=== PATIENT | male | born 1965 | race Caucasian/White ===

== ENCOUNTER 2021-05-16 18:39 | Emergency (ER) | payer OTHER ==
[2021-05-16 19:14] LABS: BASOPHIL 0.2 % (0-2); EOSINOPHIL 0.4 % (0-5); HCT 39.6 % (42.0-52.0); HGB 13.5 g/dl (13.2-18.0); LYMPHOCYTE 20.3 % (15-48); MCH 29.2 pg (25.0-31.0); MCHC 34.1 g/dL (32.0-36.0); MCV 85.5 fL (78.0-100.0); MONOCYTE 10.2 % (0-12); MPV 9.8 fL (6.0-9.5); NEUTROPHIL 68.5 % (41-80); NRBC 0; PLT 198 K/uL (150-400); RBC 4.63 M/uL (4.70-6.00); RDW 12.1 % (11.5-14.0)
[2021-05-16 19:48] LABS: ALBUMIN 3.6 g/dL (3.4-5.0); BILIRUBIN - TOTAL 0.5 mg/dL (0.2-1.0); BUN/CREAT RATIO (CALC) 18.9 RATIO; C-REACTIVE PROTEIN 5.3 mg/dL (<=0.90); CREATININE 0.9 mg/dL (0.67-1.17); GLOBULIN (CALCULATION) 3.2 g/dL; TOTAL PROTEIN 6.8 g/dL (6.4-8.2)
[2021-05-16 19:51] LABS: LACTIC ACID 0.8 mmol/L (0.4-1.9)
[2021-05-16] MEDS ORDERED: NAPROXEN500 MG PO (21:37)
[2021-05-16] MEDS ORDERED: VENTOLIN HFA18 GM INH (21:37)
[2021-05-16] MEDS ORDERED: MEDROL 4MG DOSEP4 MG PO (21:37)
[2021-05-16] MEDS ORDERED: ONDANSETRON ODT4 MG PO (21:37)
[2021-05-16 22:00] LABS: BILIRUBIN NEGATIVE (NEGATIVE); BLOOD NEGATIVE Ery/uL (NEGATIVE); CLARITY CLEAR (CLEAR); COLOR YELLOW (YELLOW); GLUCOSE (U) NORMAL (NORMAL); LEUKOCYTES NEGATIVE Leu/uL (NEGATIVE); NITRITE NEGATIVE (NEGATIVE); PROTEIN NEGATIVE (NEGATIVE); UROBILINOGEN 0.2 mg/dL (0.2-1.0)
== END 2021-05-16 22:54 | disposition home or self-care (01) ==
LOC: FER 18:39
PROVIDERS: Emergency Medicine
DX: U07.1 COVID-19 (principal); I10 Essential (primary) hypertension; Z98.890 Other specified postprocedural states; Z23 Encounter for immunization
CPT/HCPCS: 36415; 71250; 80053; 81003; 82728; 83605; 83615; 83735; 84145; 84484; 85025; 86140; 93005; J2405; J7030; M0245; Q0245